=== PATIENT | male | born 1970 | race Caucasian/White ===

== ENCOUNTER → 2021-06-18 10:30 | Outpatient (BNVA) | payer SELFPAY | PROVIDERS: PCP Nurse Practitioner Family; Visit Provider Physician Assistant ==

== ENCOUNTER 2021-09-29 09:26 | Outpatient (REF) | payer OTHER, SELFPAY ==
[2021-09-29 11:25] LABS: MANUAL DIFF FLAG NO
[2021-09-29 11:36] LABS: Basophils Percent Auto 0.7 % (0-2); Eosinophils Absolute Auto 0.1 X10*3/uL (0.0-0.4); Hematocrit 43.7 % (42.0-52.0); Imm Gran Abs Auto 0.02 X10*3/uL (0.00-0.03); Imm Gran Pct Auto 0.3 % (0.0-0.4); Lymphocytes Absolute Auto 1.7 X10*3/uL (1.2-4.9); Mean Corpuscular HGB Conc 34.3 g/dl (31.0-36.0); Mean Corpuscular Hemoglobin 29.2 pg (27.0-33.0); Mean Platelet Volume 11.7 fL (9.4-12.4); Monocytes Absolute Auto 0.5 X10*3/uL (0.1-1.2); Monocytes Percent Auto 8.5 % (2-11); Neutrophils Absolute Auto 3.6 x10*3/uL (2.0-8.3); Neutrophils Percent Auto 60.5 % (45-73); Platelet Count 229 X10*3/uL (160-400); Red Blood Count 5.14 X10*6/uL (4.60-5.80); Red Cell Distribution Width 13.1 % (11.0-16.0); White Blood Count 5.9 X10*3/uL (4.8-10.8)
[2021-09-29 11:45] LABS: Estimated Average Glucose 105 mg/dL; Hemoglobin A1c % 5.3 %
[2021-09-29 12:03] LABS: Alanine Aminotransferase 35 U/L (0-40); Albumin Level 4.2 g/dL (3.5-5.0); Alkaline Phosphatase 56 U/L (39-117); Anion Gap 10 (12-20); Aspartate Amino Transferase 27 U/L (5-37); Bilirubin Total 0.7 mg/dL (0.0-1.0); Blood Urea Nitrogen 15 mg/dL (9-16); Calcium 9.5 mg/dL (8.4-10.2); Carbon Dioxide 26 mmol/L (22-29); Chloride 106 mmol/L (96-108); Cholesterol 251 mg/dL; Estimated Glomerular Filt Rate > 60; Glucose Random 104 mg/dL (60-115); HDL Cholesterol 40 mg/dL; LDL Cholesterol Calculated 189 mg/dl; Potassium 4.2 mmol/L (3.3-5.1); Sodium 138 mmol/L (135-145); Triglycerides 113 mg/dL
[2021-09-29 12:17] LABS: HIV AB/AG Nonreactive (Nonreactive); HIV Num 1 0.07 S/CO (0.00-0.99); ~HepC Num1 0.23 S/CO (0.00-0.79); ~Hepatitis C Antibody Nonreactive (Nonreactive)
[2021-09-29 12:27] LABS: Prostate Specific Antigen 1.71 ng/mL (<0.05-4.0)
== END 2021-09-29 09:27 | disposition home or self-care (01) ==
LOC: HO.HMGCLDS 09:26
PROVIDERS: PCP Internal Medicine; Visit Provider Nurse Practitioner Family
DX: E78.2 Mixed hyperlipidemia (principal); R73.01 Impaired fasting glucose; Z12.5 Encounter for screening for malignant neoplasm of prostate; Z11.59 Encounter for screening for other viral diseases; Z11.4 Encounter for screening for human immunodeficiency virus [HIV]
CPT/HCPCS: 36415; 80053; 80061; 83036; 84153; 85025; 86803; 87389

== ENCOUNTER 2022-01-30 10:11 | Outpatient (REF) | payer OTHER, SELFPAY ==
[2022-01-30 11:16] LABS: Alanine Aminotransferase 43 U/L (0-40); Aspartate Amino Transferase 28 U/L (5-37); Cholesterol 170 mg/dL; HDL Cholesterol 40 mg/dL
[2022-01-30 11:17] LABS: LDL Cholesterol Calculated 116 mg/dl; Triglycerides 74 mg/dL
== END 2022-01-30 10:12 | disposition home or self-care (01) ==
LOC: HO.HMGCLDS 10:11
PROVIDERS: Visit Provider Nurse Practitioner Family
DX: E78.2 Mixed hyperlipidemia (principal)
CPT/HCPCS: 36415; 80061; 84450; 84460

== ENCOUNTER 2023-02-12 07:39 | Outpatient (REF) | payer OTHER, SELFPAY ==
[2023-02-12 11:26] LABS: Hematocrit 44.9 % (42.0-52.0); Hemoglobin 15.1 g/dl (14.0-18.0); Mean Corpuscular HGB Conc 33.6 g/dl (31.0-36.0); Mean Corpuscular Hemoglobin 29.2 pg (27.0-33.0); Mean Corpuscular Volume 86.7 fL (80.0-98.0); Platelet Count 221 X10*3/uL (160-400); Red Blood Count 5.18 X10*6/uL (4.60-5.80); Red Cell Distribution Width 12.8 % (11.0-16.0); White Blood Count 6.5 X10*3/uL (4.8-10.8)
[2023-02-12 11:38] LABS: Estimated Average Glucose 108 mg/dL; Hemoglobin A1c % 5.4 %
[2023-02-12 11:47] LABS: Alanine Aminotransferase 41 U/L (0-40); Albumin Level 4.1 g/dL (3.5-5.0); Alkaline Phosphatase 55 U/L (39-117); Anion Gap 11 (12-20); Aspartate Amino Transferase 28 U/L (5-37); Bilirubin Total 1.1 mg/dL (0.0-1.0); Blood Urea Nitrogen 17 mg/dL (9-16); Calcium 9.1 mg/dL (8.4-10.2); Carbon Dioxide 27 mmol/L (22-29); Chloride 106 mmol/L (96-108); Cholesterol 146 mg/dL; Estimated Glomerular Filt Rate > 60; Glucose Fasting 95 mg/dL (60-99); HDL Cholesterol 36 mg/dL; LDL Cholesterol Calculated 100 mg/dl; Potassium 4.2 mmol/L (3.3-5.1); Sodium 140 mmol/L (135-145); Total Protein 6.6 g/dL (6.5-8.0); Triglycerides 53 mg/dL
[2023-02-12 12:03] LABS: Prostate Specific Antigen Scr 2.23 ng/mL (<0.05-4.0)
== END 2023-02-12 07:40 | disposition home or self-care (01) ==
LOC: HO.HMGCLDS 07:39
PROVIDERS: PCP Nurse Practitioner Family; Visit Provider Nurse Practitioner Family
DX: Z00.00 Encounter for general adult medical examination without abnormal findings (principal); Z12.5 Encounter for screening for malignant neoplasm of prostate; E78.2 Mixed hyperlipidemia; R73.01 Impaired fasting glucose
CPT/HCPCS: 36415; 80053; 80061; 83036; 84153; 85027

== ENCOUNTER → 2023-06-17 09:00 | Outpatient (BNVA) | payer SELFPAY | PROVIDERS: PCP Nurse Practitioner Family; Visit Provider Physician Assistant | DX: Z02.79 Encounter for issue of other medical certificate (principal) ==

== ENCOUNTER 2024-09-12 08:07 | Outpatient (REF) | payer OTHER, SELFPAY ==
[2024-09-12 11:13] LABS: Alanine Aminotransferase 42 U/L (0-40); Albumin Level 4.2 g/dL (3.5-5.0); Alkaline Phosphatase 55 U/L (39-117); Anion Gap 13 (12-20); Aspartate Amino Transferase 38 U/L (5-37); Blood Urea Nitrogen 24 mg/dL (9-16); Calcium 9.4 mg/dL (8.4-10.2); Carbon Dioxide 23 mmol/L (22-29); Chloride 109 mmol/L (96-108); Estimated Glomerular Filt Rate > 60; Glucose Random 111 mg/dL (60-115); Sodium 141 mmol/L (135-145); Total Protein 7.3 g/dL (6.5-8.0)
== END 2024-09-12 08:08 | disposition home or self-care (01) ==
LOC: HO.HMGCLDS 08:07
PROVIDERS: PCP Physician Assistant Surgical; Visit Provider Physician Assistant Surgical
DX: Z00.00 Encounter for general adult medical examination without abnormal findings (principal)
CPT/HCPCS: 36415; 80053

== ENCOUNTER → 2025-06-07 11:39 | Outpatient (BNVA) | payer SELFPAY | PROVIDERS: PCP Physician Assistant Surgical; Visit Provider Physician Assistant | DX: Z02.79 Encounter for issue of other medical certificate (principal) ==

== ENCOUNTER 2025-09-20 13:44 | Outpatient (REF) | payer OTHER, SELFPAY ==
[2025-09-20 15:59] LABS: MANUAL DIFF FLAG NO
[2025-09-20 16:13] LABS: Hematocrit 41.5 % (42.0-52.0); Hemoglobin 14.2 g/dl (14.0-18.0); Imm Gran Abs Auto 0.02 X10*3/uL (0.00-0.03); Imm Gran Pct Auto 0.3 % (0.0-0.4); Lymphocytes Absolute Auto 2.2 X10*3/uL (1.2-4.9); Mean Corpuscular HGB Conc 34.2 g/dl (31.0-36.0); Mean Corpuscular Hemoglobin 30.0 pg (27.0-33.0); Mean Corpuscular Volume 87.7 fL (80.0-98.0); NRBC Abs Auto 0.000 X10*3/uL (0.0-0.012); NRBC Pct Auto 0.0 /100WBC (0.0-0.2); Platelet Count 239 X10*3/uL (160-400); Red Blood Count 4.73 X10*6/uL (4.60-5.80); White Blood Count 7.6 X10*3/uL (4.8-10.8)
[2025-09-20 16:39] LABS: Anion Gap 12 (12-20); Blood Urea Nitrogen 21 mg/dL (9-16); Calcium 8.9 mg/dL (8.4-10.2); Carbon Dioxide 24 mmol/L (22-29); Chloride 107 mmol/L (96-108); Estimated Glomerular Filt Rate > 60; Potassium 3.8 mmol/L (3.3-5.1); Sodium 139 mmol/L (135-145)
--- OUTSIDE RECORDS SUMMARY | 2025-09-20 19:14 | XMS_ITS | Encounter Summary ---
Author Organization [facility] Address [address] [place] [address] [place] [phone] Phone Care Team Providers Care Risk Modeler Name Role Phone Carlos Haro PA-C Primary Care Provider Encounter Details Date Type Department Care Team (Late st Contact Info) Description 09/02/2025 Orders Only [facility] Internal Medicine [address] [place], [place] [phone] Provider, MD Rosenda [address] [place], [place] [phone] Social History Tobacco Use Types Packs/Day Years Used Date Smoking Tobacco: Never Smokeless Tobacco: Never Alcohol Use Standard Drinks/Week Comments Yes 0 (1 standard drink = 0.6 oz pur e alcohol) 1-2 drinks, 2-4 x month Child or Family Care Answer Date Record ed Do you have problems with on e of the following making it difficult for you to work, study, or receive health care? No 01/03/2023 Education Answer Date Recorded Are you interested in help w ith more adult education (for example, completing high school, GED, job training, learning the Egyptian language, technical skills, or developing parenting skills)? No 08/07/2024 Are you concerned about learning? Not on file 08/07/2024 No 08/07/2024 Yes 08/07/2024 Food Answer Date Recorded Within the past 6 months we worried whether our food would run out before we got money to buy more. Never True 08/07/2024 Within the past 6 months the food we bought just didn't last and we didn't have enough money to get more. Never True Residential Stability Answer Date Recor ded What is your housing situation today? I have minoo redman 08/07/2024 How many times have you move d in the past 12 months? Zero (I did not move) 08/07/2024 Paying for Meds Answer Date Recorded Do you have trouble paying for medicines? No 08/07/2024 Paying Utility Bills Answer Date Record ed Do you have trouble paying your heating or elect ricity bill? No 08/07/2024 Transportation Answer Date Recorded Has the lack of transportati on kept you from medical appointments or from getting medications? No 08/07/2024 Unemployment Answer Date Recorded Are you currently unemployed or working on a part-time or temporary basis, and looking for work? No 01/03/2023 Digital Access Answer Date Recorded No 08/07/2024 Yes 08/07/2024 Do you have reliable internet access at home? Ye s 08/07/2024 Do you have a device (e.g., phone, tablet, computer) with a working camera? Yes 08/07/2024 Intimate Partner Violence Answer Date R ecorded Denied Basic Needs Not on file 09/11/2024 In the past 12 months have y ou been in a relationship with a person who hurts, threatens, or tries to control you? No 09/11/2024 Worried food would run out Not on file 09/11 In the past 12 months have y ou been in a relationship with a person who hurts, threatens, or tries to control you? No 09/11/2024 Sex and Gender Information Value Date Recorded Sex Assigned at Male 02/18/2022 9:38 PM EDT Legal Sex Male 9:36 PM EDT Gender Identity Male 02/18/2022 9:38 PM EDT Sexual Orientation Straight 02/18/2022 9: 38 PM EDT documented as of this encounter Plan of Treatment Upcoming Encounters Date Type Department Care Team (Late st Contact Info) Description 11/14/2025 3:20 PM EST Office Visit [facility] Internal Medicine [address] [place] [address] Carlos Haro PA-C [address] [place] [address] documented as of this encounter Procedures Procedure Name Priority Date/Time Associated Diagnosis Comments OUTSIDE ECHO Routine 08/27/2025 8:22 AM EST documented in this encounter Results * Outside Echo Report Only (08/27/2025 8:22 AM EST) us Historical Provider MD [facility] ECHO ORDERABLES Final Result documented in this encounter Visit Diagnoses Not on filedocumented in this encounter Additional Health Concerns Assessment Noted Time PHQ-2 Depression Total Score: 0 09/11/20 24 7:29 PM EST documented as of this encounter Care Teams Risk Modeler Relationship Specialty Start Date End Date Carlos Haro PA-C [address] [place] [phone] [email or web address] PCP - General Physician Tripe Cooker 04/23/24 documented as of this encounter Additional Source Comments The information contained in this document represents components of the legal health record. It is not the complete legal health record.[facility]
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
--- OUTSIDE RECORDS SUMMARY | 2025-09-20 19:14 | XMS_ITS | Clinical Summary ---
Author Organization [facility] Address [address] [place] [address] Phone Care Team Providers Care Manager Web Name Role Phone Carlos Haro PA-C Primary Care Provider [phone] Allergies No known active allergies Medications mecobalamin, vitamin B12, (B12 ACTIVE) 1,000 mcg Chew Take by mouth. Active cholecalciferol, vitamin D3, 25 mcg (1,000 unit) chewable tablet Take by mouth. Active ALPRAZolam (XANAX) 0.5 MG tablet TAKE 1 TABLET BY MOUTH AT BEDTIME NEEDED, NOT TO EXCEED 5 PER MONTH 5 tablet 2 4 Active DULoxetine (CYMBALTA) 20 MG capsuleIndications: Recurrent major depressive disorder, in remission TAKE 1 CAPSULE BY MOUTH EVERY DAY 90 capsule 3 5 Active atorvastatin (LIPITOR) 20 MG tabletIndications:M ixed hyperlipidemia TAKE 1 TABLET BY MOUTH EVERY DAY 90 tablet 5 Active lisinopril (PRINIVIL,ZESTRIL) 5 MG tabletIndications:E ssential hypertension TAKE 1 TABLET (5 MG TOTAL) BY MOUTH DAILY. 90 tablet 5 Active Active Problems Problem Noted Date Diagnosed Date Edema 06/05/2024 Assessment & Plan (09/13/2024 10:19 AM EST): Patient with prior history of venous stripping years ago now with consistent right calf edema. Patient did undergo an ultrasound of the right lower extremity which was negative for DVT. He does have an upcoming appointment with a vascular surgeon in October for reevaluation. Assessment & Plan (06/05/2024 9:24 AM EDT): Hx of vein stripping on the RLE. Now with increase swelling and palpable veins noted in the superior right calf. - US RLE r/o DVT STAT -Vascular referral Dr Josesito henderson Benign essential hypertension 06/05/2024 Assessment & Plan (09/13/2024 10:13 AM EST): Well-controlled Continue lisinopril 5 mg p.o. daily Assessment & Plan (06/05/2024 9:26 AM EDT): Well controlled Continue Lisinorpirl 5mg daily Anxiety 06/05/2024 Assessment & Plan (09/13/2024 10:17 AM EST): Well-controlled continue Xanax 0.5 mg p.o. nightly as needed Assessment & Plan (06/05/2024 9:26 AM EDT): Controlled Continue xanax prn and cymbalta 20mg daily Mixed hyperlipidemia 05/25/2018 Assessment & Plan (09/13/2024 10:13 AM EST): Continue Lipitor 20 mg p.o. daily Assessment & Plan (06/05/2024 9:22 AM EDT): Continue lipitor 20mg daily Obtain a lipid panel Chronic left-sided low back pain without sciatic a 04/20/2018 Assessment & Plan (09/13/2024 10:21 AM EST): Patient with a known history of lumbar stenosis with left foot drop now with continued pain in his low back and worsening symptoms. Patient did undergo an MRI but this was back in 2020. Had been seen by neurosurgery in the past for neck surgeries as well as for his back but has not seen them since 2020. Given his physical exam and prior imaging findings we will obtain a repeat MRI lumbar spine I will place a referral for orthotics and prosthetics for a brace for his left foot Handicap syed filled out as the patient mentions that he does require the use of a shopping cart if he is going shopping to bend over to alleviate some pain Assessment & Plan (01/09/2019 6:59 PM EDT): The patient's back pain may affect the presenting issue of surgical procedure (s) and may increase the risk of slow healing wound (s), infection (s), kidney, lung and/or heart problems. Stable and/or controlled chronic conditions may reduce complications associated with your chronic condition (s). He sees Dr. Garcia for his back. Resolved Problems Problem Noted Date Diagnosed Date Resolved Date Left foot drop 01/07/2023 09/13/2024 Impaired fasting blood sugar 01/07/2023 06/05/2024 Peripheral venous insufficiency 10/07/2021 09/13/2024 Right groin pain 01/09/2019 06/05/2024 Assessment & Plan (01/09/2019 7:01 PM EDT): The patient presents with right groin pain. He does have tenderness on exam, however, this feels more like adenopathy to me. Plan for now is ultrasound of the area. Scrotal mass 01/09/2019 06/05/2024 Assessment & Plan (01/09/2019 6:58 PM EDT): The patient has right groin pain which on exam is near the inguinal ligament. To me this feels more like adenopathy than a hernia. A femoral hernia could exist, but is less likely. I will order an ultrasound. If ultrasound does not show anything, I would recommend referral to physical therapy which according to the patient would be Dr. Garcia' suggestion. Moderate single current epis ode of major depressive disorder 04/20/2018 10/07/2021 Umbilical hernia 07/23/2013 07/14/2020 Encounters Date Type Department Care Team Description 09/02/2025 Orders Only [facility] [address] [place] [address] Provider, MD Rosenda 08/19/2025 Refill [facility] [address] [place] [address] Diamond May PA-C Medication Refill 07/15/2025 Refill [facility] [address] [place] [address] Carlos Haro PA-C Medication Refill from Last 3 Months Immunizations Immunization Administration Dates Next Due INFLUENZA, SPLIT VIRUS, TRIVALENT PF 09/08/2016 INFLUENZA, SPLIT VIRUS, TRIV ALENT W/ PRESERVATIVE IM 07/15/2014,06/25/2013,08/16/2012,2009 Influenza Quadrivalent Prese rvative Free IM 11/15/2017 Influenza Quadrivalent w/ Preservative IM 06/25/2013 Td (adult),2 Lf Tetanus Toxo id, PF, Adsorbed 06/11/2020 Tdap 10/15/2009 Family History Medical History Relation Comments CV disease Father Stroke Father Heart disease Maternal Uncle 1 Heart disease Maternal Uncle 2 Atrial fibrillation Mother No Known Problems Son Relation Status Comments Father (Age 75) Maternal Uncle 1 (Age 55) Maternal Uncle 2 Mother Alive Son Alive Social History Tobacco Use Types Packs/Day Years Used Date Smoking Tobacco: Never Smokeless Tobacco: Never Tobacco Cessation:Counseling Given: Not Answered Alcohol Use Standard Drinks/Week Comments Yes 0 [...] high school, GED, job training, learning the [place] language, technical skills, or developing parenting skills)? [...] Orientation Straight 02/18/2022 9: 38 PM EDT Last Filed Vital Signs Vital Sign Reading Time Taken Comments Blood Pressure 116/70 09/13/2024 8:31 AM EST Pulse 62 09/13/2024 8:31 AM EST Temperature 36.5 C (97.7 F) 09/13/2024 8:31 AM EST Respiratory Rate 20 06/05/2024 7:14 AM EDT Oxygen Saturation 98% 09/13/2024 8:31 AM EST Inhaled Oxygen Concentration - - Weight 107.8 kg (237 lb 9.6 oz) 09/13/2024 8:31 AM EST Height 180.8 cm (5' 11.18 ) 09/13/2024 8:[address] Body Mass Index 32.97 09/13/2024 8:31 AM EST Plan of Treatment Upcoming Encounters Date Type Department Care Team (Late st Contact Info) Description 11/14/2025 3:20 PM EST Office Visit [facility] [address] [place] [address] Carlos Haro PA-C [address] [place] [address] [email or web address] Health Maintenance Due Date Last Done Comments COLOGUARD 2014 FIT TEST 2014 FOBT 2014 SIGMOIDOSCOPY 2014 VIRTUAL COLONOSCOPY 2014 PNEUMOCOCCAL VACCINES (50+ years) (1 of 1 - PCV) 2019 ZOSTER VACCINES (1 of 2) 2019 BLOOD PRESSURE 03/14/2025 09/13/2024 INFLUENZA VACCINE (#1) 2025 8, 09/08/2016, 07/15/2014, Additional history exists CREATININE LEVEL 06/05/2025 06/05/2024, 05/2023, 02/12/2023, Additional history exists POTASSIUM LEVEL 06/05/2025 06/05/2024, 05/0 03/2023, 06/24/2020 COVID-19 VACCINE ( season) 2025 02/19/2021, 01/29/2021 DEPRESSION SCREENING 09/11/2025 09/11/2024 SCREENING FOR DIABETES 06/05/2027 , 02/12/2023, 06/24/2020, Additional history exists LIPID PANEL 06/05/2029 06/05/2024, 05/0 03/2023, 02/12/2023, Additional history exists Adult Td,Tdap Booster 06/11/2030 06/11/2020, 010 COLONOSCOPY 09/23/2032 09/23/2022, 08/17/2017 COLORECTAL CANCER SCREENING 09/23/2032 RSV VACCINE (1 - 1-dose 75+ series) 2044 HEPATITIS C SCREENING Completed 09/29/2021 HIV ONE-TIME SCREENING (18-65 YEARS) Completed 09/29/2021 SMOKING STATUS SCREENING (Once After 26 Yrs) Completed 09/13/2024 HEPATITIS A VACCINES Aged Out No long er eligible based on patient's age to complete this topic HIB VACCINES Aged Out No longer eligi ble based on patient's age to complete this topic MENINGOCOCCAL VACCINES (ACWY) Aged Out No longer eligible based on patient's age to complete this topic MENINGOCOCCAL VACCINES (B) Aged Out N o longer eligible based on patient's age to complete this topic Medical Devices Implanted Type Area Tower Supervisor Device Identifier Shelf Expiration Date Model / Serial / Lot Prolene 3d Patch, Polypropylene Mesh, Large Implanted:Qty: 1 on 06/30/2020 by Freda Clark MD at [facility] Mesh N/A: Abdomen ETHICON 01/08/2024 [id number] / / [id number] Plate Plate Neck Procedures Procedure Name Priority Date/Time Associated Diagnosis Comments OUTSIDE ECHO Routine 08/27/2025 8:22 AM EST LIPID PANEL Routine 06/05/2024 8:16 AM EDT Mixed hyperlipidemia COMPREHENSIVE METABOLIC PANEL (CMP) Routine 06/05/2024 8:16 AM EDT Mixed hyperlipidemia OUTSIDE GLUCOSE FASTING Routine 02/12/2023 COLONOSCOPY FOR RESULT ENTRY ONLY Routine 09/23/2022 OUTSIDE HIV Routine 09/29/2021 HEPATITIS C ANTIBODY, QUALITATIVE Routine 09/29/2021 from Last 3 Months or Most Recently Relevant to Health Maintenance Results * Outside Echo Report Only (08/27/2025 8:22 AM EST) us Historical Provider MD DENYS KHAN ORDERABLES Final Result * (ABNORMAL) Comprehensive metabolic panel (06/05/2024 8:16 AM EDT) SODIUM 139 133 - 146 mmol/L [facility] POTASSIUM 4.2 3.3 - 5.1 mmol/L [facility] CHLORIDE 104 96 - 108 mmol/L [facility] CO2 25 21 - 35 mmol/L [facility] BUN 20(H) 6 - 19 mg/dL [facility] CREATININE 0.80 0.5 - 1.5 mg/dL [facility] GLUCOSE 111(H) 70 - 99 mg/dL [facility] ALBUMIN 4.1 3.9 - 4.8 g/dL [facility] TOTAL PROTEIN 7.0 6.5 - 8.0 g/dL [facility] CALCIUM 9.4 8.4 - 10.3 mg/dL [facility] ALKALINE PHOSPHATASE 63 39 - 117 U/L [facility] TOTAL BILIRUBIN 0.7 0.0 - 1.2 mg/dL [facility] AST 29 0 - 37 U/L [facility] ALT 28 0 - 40 U/L [facility] GLOBULIN 2.9 1 - 4.8 g/dL [facility] EGFR 105 >59 mL/min/1.7 3m2 [facility] Comment:Estimated glomerular filtration rate calculated using the CKD-EPI refit equation. ANION GAP 14 10 - 20 mmol/L [facility] Blood 06/05/2024 8:16 AM EDT 06/05/2024 8:20 AM EDT us Carlos Haro PA-C LAB BLOOD BKR ORDERABLES Maddie rondon Result [address] [address] * Lipid panel (06/05/2024 8:16 AM EDT) HDL 43 mg/dL [facility] Comment: Interpretation <40 mg/dL: Low HDL cholesterol (major risk factor for CHD) Greater than or equal to 60 mg/dL: High HDL cholesterol ( negative risk factor for CHD) HDL - cholesterol is affected by a number of factors, e.g. smoking, excerise, hormones, sex and age. CHOLESTEROL 145 0 - 240 mg/dL [facility] TRIGLYCERIDES 78 30 - 160 mg/dL [facility] LDL 86 50 - 129 mg/dL [facility] Comment: LDL levels in terms of risk for coronary heart disease: <100 mg/dL: Optimal 100-129 mg/dL: Near or above optimal 130-159 mg/dL: Borderline high 160-189 mg/dL: High >190 mg/dL: Very High CARDIAC RISK RATIO 3.4 3.4 - 5.0 C [facility] Blood 06/05/2024 8:16 AM EDT 06/05/2024 8:20 AM EDT Result [facility] Carlos Haro PA-C LAB BLOOD BKR ORDERABLES Maddie l Result [facility] [address] [place] [address] * Outside Glucose,Fasting (02/12/2023) Glucose, fasting - External 95 65 - 99 mg/dL Result [facility] Historical Provider LAB BLOOD ORDERABLES Maddie l Result * COLONOSCOPY FOR RESULT ENTRY ONLY (09/23/2022) Impressions Monica Rodríguez MA - 09/23/2022 7 yr recall Result [facility] Historical Provider HEALTH MAINTENANCE Edited Result - Final * OUTSIDE HIV TEST (09/29/2021) HIV - External Neg Result [facility] Historical Provider LAB BLOOD ORDERABLES Maddie l Result * Hepatitis C antibody, qualitative (09/29/2021) Result [facility] Brennan Carnes MD LAB BLOOD BKR ORDERABLES Edit ed Result - Final from Last 3 Months or Most Recently Relevant to Health Maintenance [facility] [place] [address] [address] H[place] [facility] [address] [place], [place] [address]O [facility] H[facility] Member Subscriber Plan / Payer (Ef fective 2020-Present) Name:Delmar Guerra Relation to Subscriber:Self Name:Delmar Guerra Payer ID:Not on file Type:HMO Address: [place] [id number] [facility] HMO Advance Directives For more information, please contact: [phone] (9AM - 5PM [facility], Tuesday-Tuesday) * Full Code (Latest Code Status on File) Date Activated Date Inactivated Comments 06/30/2020 9:13 AM Question Answer Comments Code Status Confirmed With: Patient Care Teams Manager Web Relationship Specialty Start Date End Date Carlos Haro PA-C [address] [place] [phone] PCP - General Physician Business Account Executive 04/23/24 Additional Source Comments The information contained in this document represents components of the legal health record. It is not the complete legal health record.[facility]
--- OUTSIDE RECORDS SUMMARY | 2025-09-20 19:14 | XMS_ITS | Encounter Summary ---
Author Organization [facility] Address [address] [place] [address] Phone Care Team Providers Care Financial Data Analyst Name Role Phone Ana Maria Bates NP Primary Care Provider [phone] Unknown, Unknown Primary Care Provider Carlos Song PA-C Primary Care Provider [phone] Encounter Details Date Type Department Care Team (Late st Contact Info) Description 06/30/2020 Procedure Pass OR Admitting Dept - Virtual Department [address] [place] [phone] Social History Tobacco Use Types Packs/Day Years Used Date Smoking Tobacco: Never Smokeless Tobacco: Never Alcohol Use Standard Drinks/Week Comments Yes 2 (1 standard drink = 0.6 oz pur e alcohol) 2-3 drinks, beer, 1 x weekly Sex and Gender Information Value Date Recorded Sex Assigned at Male 02/18/2022 9:38 PM EDT Legal Sex Male 9:36 PM EDT Gender Identity Male 02/18/2022 9:38 PM EDT Sexual Orientation Straight 02/18/2022 9: 38 PM EDT documented as of this encounter Plan of Treatment Upcoming Encounters Date Type Department Care Team (Late st Contact Info) Description 11/14/2025 3:20 PM EST Office Visit [facility] Internal Medicine [address] [place], [place] [phone] Carlos Haro PA-C [address] [place] [address] documented as of this encounter Visit Diagnoses Not on filedocumented in this encounter Additional Health Concerns Assessment Noted Time PHQ-2 Depression Total Score: 0 09/05/20 19 10:33 AM EST documented as of this encounter Care Teams Financial Data Analyst Relationship Specialty Start Date End Date Ana Maria Bates STATIONS SUPERINTENDENT [email or web address] PCP - General Family Medicine 05/25/18 01/03/24 Unknown, Unknown, PCP - General 01/04/24 04/22/24 Carlos Haro PA-C [address] [place] [phone] [email or web address] PCP - General Physician Currency Machine Operator 04/23/24 documented as of this encounter Additional Source Comments The information contained in this document represents components of the legal health record. It is not the complete legal health record.[facility]
--- OUTSIDE RECORDS SUMMARY | 2025-09-20 19:14 | XMS_ITS | Encounter Summary ---
Author Organization [facility] Address [address] [place] [phone] Phone Care Team Providers Care Machine Rope Maker Name Role Phone Ana Maria Bates NP Primary Care Provider [phone] Unknown, Unknown Primary Care Provider Carlos Song PA-C Primary Care Provider [phone] Encounter Details Date Type Department Care Team (Late st Contact Info) Description 07/31/2021 Procedure Pass [facility], [address] [address] Social History Tobacco Use Types Packs/Day Years [...] Description 11/14/2025 3:20 PM EST Office Visit [facility] Internal Medicine [address] [place], [place] [phone] Carlos Haro PA-C [address] [place] [address] [email or web address] documented as of this encounter Visit Diagnoses Not on filedocumented in this encounter Additional Health Concerns Assessment Noted Time PHQ-2 Depression Total Score: 0 09/05/20 19 10:33 AM EST documented as of this encounter Care Teams Machine Rope Maker Relationship Specialty Start Date End Date Ana Maria Bates PROPOSAL ANALYST [email or web address] PCP - General Family Medicine 05/25/18 01/03/24 Unknown, Unknown, PCP - General 01/04/24 04/22/24 Carlos Haro PA-C [address] [place] [address] [email or web address] PCP - General Physician Crm Business Analyst 04/23/24 documented as of this encounter Additional Source Comments The information contained in this document represents components of the legal health record. It is not the complete legal health record.[facility]
== END 2025-09-20 13:45 | disposition home or self-care (01) ==
LOC: HO.HMGCLDS 13:44
PROVIDERS: PCP Physician Assistant Surgical; Visit Provider Nurse Practitioner Family
DX: I48.91 Unspecified atrial fibrillation (principal)
CPT/HCPCS: 36415; 80048; 84443; 84481; 85025